=== PATIENT | male | born 1950 | race African-American/Black ===

== ENCOUNTER 2016-08-22 09:05 | Outpatient (CLI) | payer MEDICARE, MEDICAID ==
[2016-08-22 13:36] LABS: #Basophils 0.1 thou/uL (0.0-0.2); #Eosinphils 0.1 thou/uL (0.0-0.7); #Lymphocytes 3.6 thou/uL (1.20-3.40); #Monocytes 0.9 thou/uL (0.11-0.59); #Neutrophils 4.1 thou/uL (1.40-6.50); %Basophils 0.8 % (0.0-1.0); %Eosinophils 1.2 % (0.0-10.0); %Lymphocytes 40.9 % (21.0-51.0); %Monocytes 9.8 % (0.0-10.0); %Neutrophils 47.3 % (42.0-75.0); Hemoglobin 14.2 g/dL (14.0-18.0); Mean Corpuscular HGB CONC 31.4 g/dL (32.0-36.0); Mean Corpuscular Hemoglobin 27.5 pg (27.0-31.0); Mean Corpuscular Volume 87.5 fl (80.0-94.0); Mean Platelet Volume 6.2 fL (7.4-10.4); Platelet Count 210 thou/uL (130-400); RBC Distribution Width 16.3 % (11.5-14.5); Red Blood Cell (RBC) Count 5.16 mill/uL (4.70-6.10); White Blood Cell (WBC) Count 8.7 thou/uL (4.8-10.8)
[2016-08-22 14:07] LABS: Bilirubin Negative (Negative); Blood, Urine Negative (Negative); Clarity Clear (Clear); Glucose, Urine (Dipstick) Negative (Negative); Leukocyte Negative (Negative); Nitrite Negative (Negative); Protein, Urine (Dipstick) Negative (Neg-Trace); pH, Urine 7.5 (5.0-9.0)
[2016-08-22 14:08] LABS: ALT (SGPT) 44 U/L (0-55); AST (SGOT) 56 U/L (5-34); Albumin 3.7 g/dL (3.4-4.8); Alkaline Phosphatase 52 U/L (40-150); Anion Gap 14 mmol/L (10-20); BUN (Urea Nitrogen) 14 mg/dL (8.4-25.7); Bilirubin, Total 0.5 mg/dL (0.2-1.2); Calc. Creatinine Clearance 0 mL/min (70-130); Calcium 8.9 mg/dL (7.8-10.44); Carbon Dioxide 26 mmol/L (23-31); Cardiac Risk 3.8 (Less than 4.5); Chloride 105 mmol/L (98-107); Cholesterol 225 mg/dL (< 200 Desired); Estimated GFR-MDRD Greater than 90; Glucose 79 mg/dL (80-115); HDL Cholesterol 60 mg/dL (>60 Neg Risk); LDL Cholesterol, Calculated 152 mg/dL; Protein, Total 6.7 g/dL (5.8-8.1); Sodium 141 mmol/L (136-145); Triglycerides 67 mg/dL (Less than 150)
== END 2016-08-22 09:06 | disposition home or self-care (01) ==
LOC: NAVSJIPCSP 09:05
PROVIDERS: ATTEND Internal Medicine
DX: Z12.5 Encounter for screening for malignant neoplasm of prostate (principal); I11.9 Hypertensive heart disease without heart failure; E78.5 Hyperlipidemia, unspecified; Z79.899 Other long term (current) drug therapy
CPT/HCPCS: 36415; 80053; 80061; 81003; 85025; G0103

== ENCOUNTER 2016-12-06 10:22 | Outpatient (CLI) | payer MEDICARE, MEDICAID ==
[2016-12-06 12:59] LABS: Cardiac Risk 4.6 (Less than 4.5)
[2016-12-06 18:06] LABS: Hep C IgG Ab Non-Reactive (NonReactive)
== END 2016-12-06 10:23 ==
LOC: NAVSJIPCSP 10:22
PROVIDERS: ATTEND Internal Medicine
DX: E78.5 Hyperlipidemia, unspecified (principal); Z72.89 Other problems related to lifestyle; Z79.899 Other long term (current) drug therapy
CPT/HCPCS: 36415; 80061; 86803

== ENCOUNTER 2017-01-15 11:40 | Outpatient (CLI) | payer MEDICARE, MEDICAID ==
[2017-01-15 13:05] LABS: Anion Gap 13 mmol/L (10-20); BUN (Urea Nitrogen) 15 mg/dL (8.4-25.7); Calc. Creatinine Clearance 0 mL/min (70-130); Calcium 9.4 mg/dL (7.8-10.44); Carbon Dioxide 25 mmol/L (23-31); Chloride 104 mmol/L (98-107); Estimated GFR-MDRD 84; Glucose 96 mg/dL (80-115); Potassium 4.7 mmol/L (3.5-5.1); Sodium 137 mmol/L (136-145)
[2017-01-15 13:48] LABS: Bilirubin Negative (Negative); Blood, Urine Negative (Negative); Clarity Slightly Cloudy (Clear); Glucose, Urine (Dipstick) Negative (Negative); Leukocyte Negative (Negative); Nitrite Negative (Negative); Protein, Urine (Dipstick) Negative (Neg-Trace)
== END 2017-01-15 11:41 | disposition home or self-care (01) ==
LOC: NAVSJIPCSP 11:40
PROVIDERS: ATTEND Internal Medicine
DX: R31.0 Gross hematuria (principal)
CPT/HCPCS: 36415; 80048; 81003; 87077; 87086

== ENCOUNTER 2018-03-06 08:33 | Outpatient (CLI) | payer MEDICARE, MEDICAID ==
--- NOTE | 2018-03-06 11:55 | ULT ---
ULTRASOUND ABDOMINAL AORTA: Date: 03/06/18 HISTORY: Screening for abdominal aortic aneurysm. FINDINGS: The distal abdominal aorta measures 3.6 cm in AP dimension. Both common iliac arteries measure about 1.6 cm on either side. IMPRESSION: 3.6 cm distal abdominal aortic aneurysm. POS: BRAD
== END 2018-03-06 08:34 | disposition home or self-care (01) ==
LOC: NAV ULT 08:33
PROVIDERS: ATTEND Internal Medicine
DX: Z13.6 Encounter for screening for cardiovascular disorders (principal); I71.4 Abdominal aortic aneurysm, without rupture
CPT/HCPCS: 76775